=== PATIENT | female | born 1940 | race Caucasian/White ===

== ENCOUNTER 2021-08-26 10:00 | Inpatient (IN) ==
[2021-08-26] MEDS ORDERED: IOPAMIDOL 100 ML BOTTLE IV ONE (10:01)
--- NOTE | 2021-08-26 10:59 | Emergency Department Note ---
Eye Problem HPI General Chief complaint: Eye Problems Stated complaint: blurry vision Time Seen by Provider: 08/26/21 10:28 Mode of arrival: EMS History of Present Illness HPI Narrative: Patient is an 81-year-old lady who arrives emergency department complaining of double vision. The patient says she went to bed in her usual state of health last night around 730. When she woke up this morning she noticed that she was seeing double. Her double vision is present with her glasses on her with her glasses off. She has had the same pair of glasses for the last year. She denies any associated numbness or tingling. She did have a headache earlier today but does not have 1 now. She has never had anything like this before. Related Data Home Medications Medication Instructions Recorded Confirmed lactobacillus combination no.4 3 3,000 mmu cells PO QDAY cap 02/10/15 08/26/21 billion cell capsule Allergies Allergy/AdvReac Type Severity Reaction Status Date / Time sertraline [From Zoloft] Allergy Intermediate lips Verified 08/26/21 10:07 swell, weakness [place] trees Allergy Unknown Unknown Uncoded 11/10/15 09:12 [place] trees Allergy Unknown Unknown Uncoded 11/10/15 09:12 Review of Systems ROS ROS Narrative: Narrative: All systems ED: reviewed and negative except as stated. 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) Hypothyroidism (Acute) Osteopenia (Acute) Screening for breast cancer (Acute) H/O colonoscopy (Chronic) Genital herpes (Chronic) Hyperlipidemia (Chronic) History of narrow angle glaucoma (Chronic) Excessive hunger (Acute) Seasonal allergies (Chronic) H/O adenoidectomy (Chronic) History of hysterectomy (Chronic) History of hernia repair (Chronic) History of tonsillectomy (Chronic) Hx of eye surgery (Chronic) Medical History Basal cell carcinoma of nasal tip Eustachian tube dysfunction Excessive hunger Genital herpes History of narrow angle glaucoma Hyperlipidemia total cholesterol 140 HDL cholesterol 80-90. She has elected to stop cholesterol testing Hypothyroidism Osteopenia Screening for breast cancer Seasonal allergies Sinusitis Surgical History H/O adenoidectomy H/O colonoscopy -2006-normal History of hernia repair 1979 inguinal hernia History of hysterectomy AN-USO History of tonsillectomy adenoids removed too Hx of eye surgery narrow katie glaucoma laser surgery Status post surgical removal of malignant neoplasm of skin Nose, basal cell carcinoma Family History Father Cardiac disease had an angioplasty, but was a heavy smoker Mother Essential hypertension Giant cell arteritis Social History Smoking Status: Never smoker Alcohol Intake Frequency: does not drink Substance Use: does not use Exam Narrative Narrative: I reviewed the vital signs. Gen -patient is awake and alert and in no acute distress. The patient is well groomed. HEENT -head is atraumatic. There is no conjunctival pallor or scleral icterus. Mucous membranes are moist. CV -S1-S2 regular rate and rhythm. Resp -breathing is nonlabored. Lungs are clear to auscultation bilaterally. There is no cyanosis. Derm -skin is warm and dry. MSK -present extremities are atraumatic. Psych -patient has appropriate affect. Neuro -patient answers questions appropriately and is oriented to person, place, time and situation. There is no dysarthria or aphasia. Facial sensation is symmetric. There is no facial muscular asymmetry. With forward gaze, the right eye is deviated inward relative to the left. Extraocular motions are otherwise intact. Patient's double vision resolves when covering either eye. Visual salcido are intact confrontation. Tongue protrudes in the midline. Palate elevates symmetrically. Shoulder shrug is symmetric. Muscle strength is 5 out of 5 in all 4 extremities. Peripheral sensation is grossly intact to light touch bilaterally. There is no hcss-ls-wcsk abnormality. There is no ekxwyu-kf-kwdk abnormality. NIH stroke scale equals 1. Course Vital Signs Vital signs: Vital Signs Temperature 97.6 F 08/26/21 10:01 Pulse Rate 94 H 08/26/21 10:01 Respiratory Rate 16 08/26/21 10:01 Blood Pressure 150/79 08/26/21 10:01 Temperature 97.6 F 08/26/21 10:01 Pulse Rate 89 08/26/21 13:46 Respiratory Rate 27 H 08/26/21 13:46 Blood Pressure 144/70 08/26/21 13:46 Pulse Oximetry (%) 100 08/26/21 13:46 MDM MDM Narrative Medical decision making narrative: Patient presents with diplopia that abates with covering of either eye. She has no other neurologic deficits on exam. Noncontrast CT of the brain does not reveal any intracranial hemorrhage. I discussed her history examination diagnostic findings with Dr. Novak, with the teleneurology service at [facility]. She agrees my concerns about possible ischemic stroke and recommends CT angio to evaluate for possible vertebral insufficiency. She also recommends initiating aspirin treatment and admitting for stroke evaluation. I discussed the plan with the patient and her son on the telephone and they are agreeable. CT angiogram does not reveal vascular abnormalities. I discussed the patient's history examination and diagnostic findings with Dr. Carson, who agrees with the plan of care and accepts admission. Lab Data Lab results reviewed: Yes I reviewed the patient's lab results. Result diagrams: 08/26/21 11:31 Labs: Lab Results 08/26/21 08/26/21 08/26/21 Range/Units 11:31 11:31 11:40 WBC 6.3 (4.5-11.0) K/mcL RBC 4.65 (3.59-5.38) M/mcL Hgb 14.9 (11.2-15.7) g/dL Hct 45.0 H (34.1-44.9) % POC Hct 41 (36-48) % MCV 96.8 (80.0-100.0) fL MCH 32.0 (26.0-34.0) pg MCHC 33.1 (31.0-36.0) g/dL RDW 12.1 (11.5-14.5) % Plt Count 195 (140-440) K/mcL MPV 12.7 H (7.4-10.4) fL Neut % (Auto) 67.2 (38.0-78.0) % Lymph % (Auto) 24.9 (15.5-49.0) % Cloud % (Auto) 7.2 (1.0-12.0) % Eos % (Auto) 0.2 (0.0-7.0) % Baso % (Auto) 0.5 (0.0-2.0) % Lymph # (Auto) 1.56 (1.50-4.80) K/mcL Cloud # (Auto) 0.45 (0.10-0.90) K/mcL Eos # (Auto) 0.01 (0.00-0.70) K/mcL Baso # (Auto) 0.03 (0.00-0.30) K/mcL Absolute Neutrophils 4.21 (1.80-8.00) K/mcL ESR 14 (0-30) mm/hr POC Sodium 141 (133-145) mEq/L POC Potassium 3.7 (3.3-5.1) mEql/L POC Chloride 105 (96-108) mEq/L POC Total CO2 22 (22-30) mmol/L POC BUN 16 (6-20) mg/dL POC Creatinine 0.7 (0.6-1.2) mg/dL POC Glucose 105 (70-105) mg/dL POC WB Ioniz Calcium 1.22 (1.16-1.32) mmEq/L EKG Data EKG #1: EKG attestation: Yes I reviewed and interpreted this EKG. EKG results narrative: EKG performed at 11:21 AM: Sinus rhythm, rate 76. Normal P wave QRS and T wave morphology. No ST segment deviation. Normal FL QRS and QTc duration. No old EKG immediately available for comparison. EKG was interpreted by me. Discharge Plan Patient/Caregiver Discharge Instructions Pt seen by MARKETING COMMUNICATION MANAGER/PA only: No Clinical Impression: Ophthalmoplegia Patient Disposition: Xfer As Inpt ([facility]) Follow up with: Bethany Poe MD [Primary Care Provider] - Prescriptions: No Action lactobacillus combination no.4 3 billion cell capsule 3,000 mmu cells PO QDAY 0RF Rx Instructions: administer with a meal
[2021-08-26] MEDS ORDERED: ASPIRIN 81 MG TAB.CHEW PO ONE (11:43)
[2021-08-26 11:51] LABS: POC Blood Urea Nitrogen 16 mg/dL (6-20); POC CO2 22 mmol/L (22-30); POC Calcium, Ionized 1.22 mmEq/L (1.16-1.32); POC Chloride 105 mEq/L (96-108); POC Creatinine 0.7 mg/dL (0.6-1.2); POC Glucose, Random 105 mg/dL (70-105); POC Hematocrit 41 % (36-48); POC Potassium 3.7 mEql/L (3.3-5.1); POC Sodium 141 mEq/L (133-145)
[2021-08-26 13:44] LABS: Basophils # (Auto) 0.03 K/mcL (0.00-0.30); Basophils % (Auto) 0.5 % (0.0-2.0); Eosinophils # (Auto) 0.01 K/mcL (0.00-0.70); Eosinophils % (Auto) 0.2 % (0.0-7.0); Hemoglobin 14.9 g/dL (11.2-15.7); Lymphocytes # (Auto) 1.56 K/mcL (1.50-4.80); Lymphocytes % (Auto) 24.9 % (15.5-49.0); Mean Cell Volume 96.8 fL (80.0-100.0); Mean Corpuscular HGB Conc 33.1 g/dL (31.0-36.0); Mean Platelet Volume 12.7 fL (7.4-10.4); Monocytes # (Auto) 0.45 K/mcL (0.10-0.90); Monocytes % (Auto) 7.2 % (1.0-12.0); Neutrophils % (Auto) 67.2 % (38.0-78.0); Platelet Count 195 K/mcL (140-440); RBC 4.65 M/mcL (3.59-5.38); Red Cell Distribution Width 12.1 % (11.5-14.5); WBC 6.3 K/mcL (4.5-11.0)
--- NOTE | 2021-08-26 14:36 | Cat Scan Report ---
CLINICAL INFORMATION: Decreased vision COMPARISON: None. TECHNIQUE: 2.5 mm helical slices were obtained in the skull base to vertex. Following reconstruction, axial reformatted images were reviewed at bone and parenchymal windows. The exam was performed using radiation dose optimization techniques including, but not limited to, automated exposure control, adjustment of the mA and/or kV according to patient size and use of iterative reconstruction technique. FINDINGS: The ventricles, sulci, fissures, and cisterns are symmetrically enlarged compatible with mild age-related atrophy. No extra-axial fluid collections are identified. Mild patchy chronic ischemic changes, in the deep cerebral white matter, are expected for age. There is no hemorrhage, mass effect, or edema. Bone windows show no osseous abnormality. IMPRESSION: Mild atrophy and chronic ischemic changes in the deep cerebral white matter-expected for age. No acute findings Interpreted and Authenticated by: Vikas Brunner 08/26/21
--- NOTE | 2021-08-26 14:40 | Cat Scan Report ---
CLINICAL INFORMATION: Decreased vision COMPARISON: None. TECHNIQUE: 80 cc of Isovue-370 were injected intravenously , and using SmartPrep to maximize cerebral arterial opacification, 0.625 mm helical slices were obtained from the skull base through the cerebral vertex. Following reconstruction , sagittal, coronal and axial reformatted images were processed and reviewed at multiple windows and levels. 3D volume rendered and MIP images were acquired at a independent workstation. The exam was performed using radiation dose optimization techniques including, but not limited to, automated exposure control, adjustment of the mA and/or kV according to patient size and use of iterative reconstruction technique. FINDINGS: The intracranial internal carotid, both ophthalmic vertebral, basilar, anterior, middle and posterior cerebral arteries and their branches are well-opacified and normal in contour and caliber without significant stenosis, occlusion or other pathology. Superficial/deep cerebral veins and deep venous sinuses are widely patent IMPRESSION: Normal exam Interpreted and Authenticated by: Vikas Brunner 08/26/21
[2021-08-26] MEDS ORDERED: MIDAZOLAM 2 MG/2 ML VIAL IV ONE (14:52)
--- NOTE | 2021-08-26 15:08 | Internal Med History&Physical ---
HPI History of Present Illness Patient information: Note initiated : 08/26/21 at 3:05 pm Service Date, if different from initiated Date: [] Patient: Denice Barrow 81 y/o F admitted on for blurry vision. Chief Complaint: [] Chief complaint: Diplopia History of present illness: Ms. Barrow is a 81 year old female with a history of hypothyroidism, hyperlipidemia, cataract surgery, unintentional weight loss, hysterectomy who lives alone at home presented to the emergency department for acute diplopia which she noticed this morning when she woke up. The patient says that she did not notice diplopia yesterday when she went to bed. In the emergency department, the patient's vitals were stable, routine lab work was unremarkable, CT head without contrast did not show any acute changes, CTA and head and neck did not reveal any hemodynamically significant stenosis. Hospital medicine was asked to admit the patient for further work-up of diplopia and concern for possible acute ischemic stroke. The patient did receive aspirin 162 mg once in the emergency department. CODE STATUS was discussed in detail prior to admission, the patient wishes to be DNR/DNI. Review of systems Constitutional: Positive for fatigue and unintentional weight loss Eyes: Positive for double vision Cardiovascular: no chest pain, no palpitations Respiratory: no cough or dyspnea Gastrointestinal: no abdominal pain, no nausea, vomiting, or diarrhea Genitourinary: Positive for urinary incontinence g Musculoskeletal: no arthralgia or myalgia Integumentary: no skin lesion or wound Neurological: no focal weakness or numbness Psychiatric: no anxiety or depression Physical exam Head: Atraumatic, normal inspection. Eyes: normal appearance, no scleral icterus. Neck: full ROM Respiratory: no respiratory distress. Cardiovascular: normal rate and rhythm, S1, S2. GI/Abdominal: soft, nontender, no guarding. Extremities: full range of motion, nontender. Neurological: Patient reports diplopia, intact motor, intact sensation. Psychiatric: normal mood. 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) Hypothyroidism (Acute) Osteopenia (Acute) Screening for breast cancer (Acute) H/O colonoscopy (Chronic) Genital herpes (Chronic) Hyperlipidemia (Chronic) History of narrow angle glaucoma (Chronic) Excessive hunger (Acute) Seasonal allergies (Chronic) H/O adenoidectomy (Chronic) History of hysterectomy (Chronic) History of hernia repair (Chronic) History of tonsillectomy (Chronic) Hx of eye surgery (Chronic) Medical History Basal cell carcinoma of nasal tip Eustachian tube dysfunction Excessive hunger Genital herpes History of narrow angle glaucoma Hyperlipidemia total cholesterol 140 HDL cholesterol 80-90. She has elected to stop cholesterol testing Hypothyroidism Osteopenia Screening for breast cancer Seasonal allergies Sinusitis Surgical History H/O adenoidectomy H/O colonoscopy -2006-normal History of hernia repair 1979 inguinal hernia History of hysterectomy AN-USO History of tonsillectomy adenoids removed too Hx of eye surgery narrow katie glaucoma laser surgery Status post surgical removal of malignant neoplasm of skin Nose, basal cell carcinoma Family History Father Cardiac disease had an angioplasty, but was a heavy smoker Mother Essential hypertension Giant cell arteritis Social History adopted: No caregiver/support person: No foster care: No household members: alone housing: house lives independently: Yes marital status: education level: college service: No occupational status: retired occupation: [employer] pets and animals: Yes leisure activities: art other: 2 boys alcohol intake frequency: does not drink substance use type: does not use MEDS/ALLERGIES Home Medications and Allergies Home Medications Medication Instructions Recorded Confirmed Type lactobacillus combination no.4 3 3,000 mmu cells PO QDAY cap 02/10/15 08/26/21 History billion cell capsule Allergies Allergy/AdvReac Type Severity Reaction Status Date / Time sertraline [From Zoloft] Allergy Intermediate lips Verified 08/26/21 10:07 swell, weakness [place] trees Allergy Unknown Unknown Uncoded 11/10/15 09:12 [place] trees Allergy Unknown Unknown Uncoded 11/10/15 09:12 EXAM Constitutional Vitals: Temp Pulse Resp BP Pulse Ox 97.6 F 88 25 H 133/67 100 08/26/21 10:01 08/26/21 14:01 08/26/21 14:31 08/26/21 14:31 08/26/21 14:01 DATA Data Completed and Pending Labs: Labs from last 24 hours 08/26/21 08/26/21 08/26/21 11:40 11:31 11:31 WBC 6.3 RBC 4.65 Hgb 14.9 Hct 45.0 H POC Hct 41 MCV 96.8 MCH 32.0 MCHC 33.1 RDW 12.1 Plt Count 195 MPV 12.7 H Neut % (Auto) 67.2 Lymph % (Auto) 24.9 [place] % (Auto) 7.2 Eos % (Auto) 0.2 Baso % (Auto) 0.5 Lymph # (Auto) 1.56 [place] # (Auto) 0.45 Eos # (Auto) 0.01 Baso # (Auto) 0.03 Absolute Neutrophils 4.21 ESR 14 POC Sodium 141 POC Potassium 3.7 POC Chloride 105 POC Total CO2 22 POC BUN 16 POC Creatinine 0.7 POC Glucose 105 POC WB Ioniz Calcium 1.22 A/P Narrative A/P Narrative: Assessment: 81-year-old female with a medical history not limted to hypothyroidism, hyperlipidemia, unintentional weight loss presented to the ED for acute diplopia that the patient noticed when she woke up on the day of admission. CT head without contrast, CTA head and neck did not reveal any stroke or hemodynamically significant stenosis, respectively. The patient was discussed with teleneuro stroke by the ED provider with recommendation made to admit the patient to [facility] for further evaluation of a possible acute ischemic stroke. The patient was admitted for evaluation of possible ischemic stroke. #Acute onset diplopia #Concern for possible ischemic stroke #Hypothyroidism #Hyperlipidemia #History of cataract surgery Plan -Start aspirin 81 mg daily. -Add statin if MRI brain shows an acute stroke. -MRI brain. -TTE. -Lipid panel, hemoglobin A1c. -TSH, ESR. -Neuro checks/NIHSS. -property management accountant. -PT and OT. -Regular diet. -DVT PPx: Heparin SQ -CODE STATUS: DNR/DNI -Disposition: TBD Time Spent With Patient Time: Total time spent is greater than 50% in coordination of care (as documented) at patient's floor/unit and/or counseling patient:
[2021-08-26] MEDS ORDERED: ONDANSETRON 4 MG/2 ML VIAL IV PRN (15:54)
[2021-08-26] MEDS ORDERED: ACETAMINOPHEN 325 MG TABLET PO PRN (15:54)
--- NOTE | 2021-08-26 16:00 | Cat Scan Report ---
CLINICAL INFORMATION: Decreased vision COMPARISON: None. TECHNIQUE: 80 cc of Isovue-300 were injected intravenously followed by 40 cc of normal saline flush. Using SmartPrep, 0.625 helical slices were obtained from the thoracic aortic arch through the [place]. Following reconstruction, 2.5 mm sagittal, coronal and axial reformatted images were processed. MIPS , 3-D volume rendering and CPR images were also constructed. The exam was performed using radiation dose optimization techniques including, but not limited to, automated exposure control, adjustment of the mA and/or kV according to patient size and use of iterative reconstruction technique. FINDINGS: The thoracic aortic arch is normal diameter with minimal intimal thickening and conventional aortic branching. The brachiocephalic, both subclavian, both common, internal and external carotid and both vertebral arteries are widely patent without significant abnormality. No soft tissue abnormality. At C4-5 moderate broad disc spur complex and facet arthropathy result in mild central canal and severe left IV foraminal narrowing. Impinging the exiting left C5 nerve root. At C5-6 large broad disc spur complex results in moderate central canal and severe bilateral IV foraminal narrowing impinging exiting C6 nerve roots IMPRESSION: Thoracic aorta arch, brachiocephalic all carotid, subclavian and vertebral arteries are widely patent. Mid spine degeneration resulting in central canal and IV foraminal narrowing. Please correlate with upper extremity radiculopathy Interpreted and Authenticated by: Vikas Brunner 08/26/21
[2021-08-26 16:41] LABS: Estimated Average Glucose(eAG) 105 mg/dL; Hemoglobin A1C 5.3 % Hgb (4.0-6.0)
[2021-08-26] MEDS: 0.9 % SODIUM CHLORIDE 10 ML SYRINGE IV SCH (20:24)
[2021-08-26] MEDS: DOCUSATE SODIUM 100 MG CAPSULE PO SCH (20:24)
[2021-08-26] MEDS: SENNOSIDES 1 TABLET PO SCH (20:24)
[2021-08-27 06:30] LABS: HDL Cholesterol 72 mg/dL (>40); LDL Cholesterol,Calculated 183 mg/dL (<100); Non-HDL Cholesterol 193 mg/dL (<130); Triglycerides 52 mg/dL (<150)
[2021-08-27] MEDS: 0.9 % SODIUM CHLORIDE 10 ML SYRINGE IV SCH ×3 (06:46→21:38)
--- NOTE | 2021-08-27 07:42 | EKG ---
[facility] Test Date: 2021-08-26 Pat Name: Denice Barrow Department: ED Room: Gender: Female Executive Admin: POOL : 1940 Requested By: Jeremy Menezes Order Number: [id number] Reading MD: Yimi Dennis Measurements Intervals [place] Rate: 76 P: 81 NC: 143 QRS: 80 QRSD: 93 T: 54 QT: 389 QTc: 438 Interpretive Statements Sinus rhythm Low voltage, precordial leads Baseline wander in lead(s) V6 Electronically Signed On 08-27-2021 7:41:49 PST by Yimi Dennis /store/M0/[id number]
[2021-08-27] MEDS: ENOXAPARIN 40 MG/0.4 ML SYRINGE SQ SCH ×2 (08:28→09:14)
[2021-08-27] MEDS: DOCUSATE SODIUM 100 MG CAPSULE PO SCH ×2 (08:29→21:38)
[2021-08-27] MEDS: LACTOBACILLUS 1 CAPSULE PO SCH (08:29)
[2021-08-27] MEDS ORDERED: ASPIRIN 81 MG TAB.CHEW CHEWED SCH (09:00)
--- NOTE | 2021-08-27 10:46 | Magnetic Resonance Report ---
History: Yesterday the patient presented with blurred vision which has since resolved TECHNIQUE: The brain was imaged using stroke protocol. FINDINGS: There is no evidence of an infarct, hemorrhage or neoplasm. The T2 and FLAIR sequences reveal a patchy distribution of white matter lesions in the centrum semiovale in the frontal and parietal lobes. Largest are in the parietal lobes posterior and above the atrium of the lateral ventricles. These have no mass effect or restricted diffusion. No abnormality is seen along the visual pathways. There is mild generalized atrophy. No abnormal extra-axial fluid collection is present. Allowing for differences in technique there has been no change from the head CT performed on 08/26/21. IMPRESSION: Age-related degenerative changes and no acute abnormality Interpreted and Authenticated by: Armaan Stephenson 08/27/21
--- NOTE | 2021-08-27 16:41 | Internal Med Progress Note ---
SUBJECTIVE Subjective Patient information: Note initiated : 08/27/21 at 4:40 pm Service Date, if different from initiated Date: [] Patient: Denice Barrow 81 y/o F admitted on 08/26/21 for blurry vision. Chief Complaint: [] Principal diagnosis: Diplopia Interval history: Ms. Barrow is a 81 year old female with a history of hypothyroidism, hyperlipidemia, cataract surgery, unintentional weight loss, hysterectomy who lives alone at home presented to the emergency department for acute diplopia which she noticed this morning when she woke up. The patient says that she did not notice diplopia yesterday when she went to bed. In the emergency department, the patient's vitals were stable, routine lab work was unremarkable, CT head without contrast did not show any acute changes, CTA and head and neck did not reveal any hemodynamically significant stenosis. Hospital medicine was asked to admit the patient for further work-up of diplopia and concern for possible acute ischemic stroke. The patient did receive aspirin 162 mg once in the emergency department. CODE STATUS was discussed in detail prior to ad mission, the patient wishes to be DNR/DNI. 08/27 No major issues overnight. Diplopia has resolved, the MRI brain was negative for stroke. TSH and ESR normal. Awaiting PT and OT evaluations. Physical exam Head: Atraumatic, normal inspection. Eyes: normal appearance, no scleral icterus. Neck: full ROM Respiratory: no respiratory distress. Cardiovascular: normal rate and rhythm, S1, S2. GI/Abdominal: soft, nontender, no guarding. Extremities: full range of motion, nontender. Neurological: Patient reports diplopia, intact motor, intact sensation. Psychiatric: normal mood. Skin: warm, normal color Constitutional Vitals: Vital Signs Temp Pulse Resp BP Pulse Ox 98.4 F 79 14 148/73 98 08/27/21 15:50 08/27/21 15:50 08/27/21 15:50 08/27/21 15:50 08/27/21 15:50 Period Temp Pulse Resp BP Sys/Cloud Pulse Ox Last 24 Hr 97.4 F-98.5 F 69-79 14-16 124-148/69-81 95-98 Intake and Output 08/27/21 08/27/21 08/27/21 05:59 13:59 21:59 Intake Total 480 480 Output Total 100 300 200 Balance 380 180 -200 Weight 43.318 kg Patient Weight 08/28/21 05:59 Weight 43.318 kg Intake & Output: Intake & Output 08/27/21 08/27/21 08/27/21 05:59 13:59 21:59 Intake Total 480 480 Output Total 100 300 200 Balance 380 180 -200 Weight 43.318 kg Intake: Oral 480 480 Output: Void Amount 100 300 200 Other: Meal Breakfast Percent of Meal Consumed 50% Urine Appearance Clear Clear Clear Urine Color Dark Yellow Bright Yellow Bright Yellow # Voids 2 OBJ DATA Labs CBC & Chem 7: 08/26/21 11:31 Labs: Abnormal Lab Results 08/27/21 08/26/21 05:18 11:31 Hct 45.0 H MPV 12.7 H Cholesterol 265 H LDL Cholesterol, Calc 183 H Non-HDL Cholesterol 193 H Meds: Medications Acetaminophen (Acetaminophen 325 Mg Tablet) 650 mg PO Q6HP PRN; Protocol PRN Reason: Per Pain Protocol/Fever > 101 Aspirin (Aspirin 81 Mg Tab.Chew) 81 mg CHEWED DAILY [facility] Last Admin: 08/27/21 08:29 Dose: 81 mg Documented by: Docusate Sodium (Docusate Sodium 100 Mg Capsule) 100 mg PO BID [facility] Last Admin: 08/27/21 08:29 Dose: Not Given Documented by: Enoxaparin Sodium (Enoxaparin 40 Mg/0.4 Ml Syringe) 40 mg SQ DAILY [facility] Last Admin: 08/27/21 09:14 Dose: Not Given Documented by: Lactobacillus Rhamnosus (Lactobacillus 1 Capsule) 1 cap PO [facility] Last Admin: 08/27/21 08:29 Dose: 1 cap Documented by: Ondansetron HCl (Ondansetron 4 Mg/2 Ml Vial) 4 mg IV Q6HP PRN PRN Reason: Nausea And Vomiting Senna (Sennosides 1 Tablet) 2 tab PO HS [facility] Last Admin: 08/26/21 20:24 Dose: 2 tab Documented by: Sodium Chloride (0.9 % Sodium Chloride 10 Ml Syringe) 10 ml IV Q8 [facility] Last Admin: 08/27/21 16:18 Dose: Not Given Documented by: A/P Narrative A/P Narrative: Assessment: 81-year-old female with a medical history not limted to hypothyroidism, hyperlipidemia, unintentional weight loss presented to the ED for acute diplopia that the patient noticed when she woke up on the day of admission. CT head without contrast, CTA head and neck did not reveal any stroke or hemodynamically significant stenosis, respectively. The patient was discussed with teleneuro stroke by the ED provider with recommendation made to admit the patient to [facility] for further evaluation of a possible acute ischemic stroke. The patient was admitted for evaluation of possible ischemic stroke. #Resolved diplopia #Hypothyroidism #Hyperlipidemia #History of cataract surgery Plan -Follow up pending TTE. -Neuro checks/NIHSS. -security monitor. -PT and OT. -Regular diet. -DVT PPx: Heparin SQ -CODE STATUS: DNR/DNI -Disposition: Probably home. Time Spent With Patient Time: Total time spent is greater than 50% in coordination of care (as documented) at patient's floor/unit and/or counseling patient: QUALITY Stroke Onset of Symptoms Date: 08/26/21 Onset of Symptoms Time: 07:30 Symptom Onset Unknown: Yes
[2021-08-27] MEDS: SENNOSIDES 1 TABLET PO SCH (21:38)
[2021-08-28] MEDS: 0.9 % SODIUM CHLORIDE 10 ML SYRINGE IV SCH (06:00)
[2021-08-28] MEDS: ENOXAPARIN 40 MG/0.4 ML SYRINGE SQ SCH (08:46)
--- NOTE | 2021-08-28 08:46 | Discharge Summary ---
Discharge Provider Provider Patient information: Note initiated : 08/28/21 at 8:42 am Service Date, if different from initiated Date: [] Patient: Denice Barrow 81 y/o F admitted on 08/26/21 for blurry vision. Chief Complaint: [] Date of admission: 08/26/21 15:50 Discharge date: 08/28/21 Primary care physician: Bethany Poe Consults: 08/26/21 Consult to Physician [CONS] Stat Comment: Consulting Provider: Bruno Carson Reason For Exam: Physician to Consult 08/26/21 11:35 Consult to Physician [CONS] Stat Comment: Consulting Provider: Telestroke,Provider Reason For Exam: Physician to Consult Discharge Meds Discharge Medications Home Medications lactobacillus combination no.4 3 billion cell capsule 3,000 mmu cells PO QDAY cap 02/10/15 [History Confirmed 08/26/21 Last Taken Unknown] docusate calcium 240 mg capsule 240 mg PO QDAY #30 cap 08/28/21 [Rx Last Taken Unknown] polyethylene glycol 3350 17 gram/dose oral powder (Miralax) 17 g PO QDAY PRN #238 g 08/28/21 [Rx Last Taken Unknown] COURSE Hospital Course Hospital course: Ms. Barrow is a 81 year old female with a history of hypothyroidism, h yperlipidemia, cataract surgery, unintentional weight loss, hysterectomy who lives alone at home presented to the emergency department for acute diplopia which she noticed this morning when she woke up. The patient says that she did not notice diplopia yesterday when she went to bed. In the emergency department, the patient's vitals were stable, routine lab work was unremarkable, CT head without contrast did not show any acute changes, CTA and head and neck did not reveal any hemodynamically significant stenosis. Hospital medicine was asked to admit the patient for further work-up of diplopia and concern for possible acute ischemic stroke. The patient did receive aspirin 162 mg once in the emergency department. CODE STATUS was discussed in detail prior to admission, the patient wishes to be DNR/DNI. 08/27 No major issues overnight. Diplopia has resolved, the MRI brain was negative for stroke. TSH and ESR normal. Awaiting PT and OT evaluations. 08/28 Appears to be at baseline, discharged to home. Doubt the patient had a TIA, discontinued aspirin. Discussed elevated LDL, the patient wants to avoid new medications except for constipation. Discussed options for constipation, will s tart with Docusate daily and Miralax prn. Could consider Senna instead of Docusate if it is not effected. The patient is very anxious, this may be playing a role in her initial presentation. She follows with a counselor and so far has not been interested in a trial of medications. The patient plans to move to the [facility] soon to be near family. Recommended that she start looking for a PCP in the [facility] soon. Physical exam Head: Atraumatic, normal inspection. Eyes: normal appearance, no scleral icterus. Neck: full ROM Respiratory: no respiratory distress. Cardiovascular: normal rate and rhythm, S1, S2. GI/Abdominal: soft, nontender, no guarding. Extremities: full range of motion, nontender. Neurological: Patient reports diplopia, intact motor, intact sensation. Psychiatric: normal mood. Skin: warm, normal color Discharge diagnosis: Resolved diplopia Secondary discharge diagnosis: Anxiety Time Spent with Patient Time attestation: Total time spent providing and/or coordinating discharge services: EXAM Constitutional Vitals: Temp Pulse Resp BP Pulse Ox 97.6 F 75 16 134/79 97 08/28/21 07:23 08/28/21 07:23 08/28/21 07:23 08/28/21 07:23 08/28/21 07:23 Discharge Plan Patient/Caregiver Discharge Instructions Activity: increase activity as tolerated Diet: Regular Diet Prescriptions: New docusate calcium 240 mg capsule 240 mg PO QDAY Qty: 30 0RF polyethylene glycol 3350 [Miralax] 17 gram/dose powder 17 g PO QDAY PRN (Reason: constipation) Qty: 238 1RF Continued lactobacillus combination no.4 3 billion cell capsule 3,000 mmu cells PO QDAY 0RF Rx Instructions: administer with a meal Follow Up Plan Follow up with: Btehany Poe MD [Primary Care Provider] - 09/04/21 3:00 pm Patient Disposition: Home, Self-Care Overall status at discharge: patient is back to baseline Discharge Orders: Discharge Order (Routine); Ordered 08/28/21 Ordered By: Bruno Carson
[2021-08-28] MEDS: LACTOBACILLUS 1 CAPSULE PO SCH (08:47)
[2021-08-28] MEDS: DOCUSATE SODIUM 100 MG CAPSULE PO SCH (08:47)
== END 2021-08-28 11:00 | disposition home or self-care (01) | DRG 123 ==
LOC: ED 10:00 → MEDSUR 15:50
PROVIDERS: ADMIT Internal Medicine; ATTEND Internal Medicine